=== PATIENT | female | born 1950 | race Caucasian/White ===

== ENCOUNTER → 2018-07-18 10:07 | Outpatient (CLI) | payer MEDICARE ==
[2018-07-18 11:04] LABS: ALBUMIN 3.9 g/dL (3.4-5.0); BILIRUBIN - DIRECT 0.12 mg/dL (0.00-0.30); BILIRUBIN - INDIRECT 0.43 mg/dL (0.00-1.00); BILIRUBIN - TOTAL 0.55 mg/dL (0.2-1.3)
== END | disposition home or self-care (01) ==
LOC: D.NM 09:30
PROVIDERS: ATTEND Internal Medicine Gastroenterology
DX: R11.2 Nausea with vomiting, unspecified (principal); R19.7 Diarrhea, unspecified; R12 Heartburn

== ENCOUNTER 2018-08-20 07:00 | Day surgery (SDC) | payer MEDICARE ==
[2018-08-19 10:31] LABS: HEMATOCRIT 39.9 % (36.0-48.0); HEMOGLOBIN 13.3 g/dL (12-16); MCH 30.3 pg (26.0-34.0); MCHC 33.3 g/dL (31.0-37.0); MCV 90.9 fL (80.0-100.0); MEAN PLATELET VOLUME 9.2 fL (7.4-10.4); RBC 4.39 10x6/uL (4.00-5.40); RDW 14.2 % (11.5-14.5); WBC 9.3 10x3/uL (4.8-10.8)
[~2018-08-20 07:00] MED LIST: DEPAKOTE ER500 MG PO; NEURONTIN 300300 MG PO; ZOVIRAX800 MG PO
[2018-08-20 08:21] VITALS: BP 126/82; BMI 27.7
[2018-08-20] MEDS ORDERED: HYDROCODON-ACE1 EAC7 PO (10:38)
--- NOTE | 2018-08-20 12:34 | NUR ---
1210 SCOPE PATCH APPLIED FOR NAUSEA. O2 SAT LOW AND O2 PER NC APPLIED
--- NOTE | 2018-08-20 12:42 | NUR ---
PT ASLEEP BUT EASY TO ARROUSE AND STATED SHE FEELS A LITTLE BETTER. B/P IMPROVED AND O2 TURNED TO 1 LITER FROM 2LITERS
--- NOTE | 2018-08-20 15:38 | NUR ---
1500 IV REMOVED INSTRUCTIONS GIVEN PT VOIDED.
== END 2018-08-20 15:15 | disposition home or self-care (01) ==
LOC: D.OPS 07:00
PROVIDERS: Anesthesiology; ATTEND Surgery
DX: K80.20 Calculus of gallbladder without cholecystitis without obstruction (principal); Z01.812 Encounter for preprocedural laboratory examination